=== PATIENT | male | born 1965 | race Caucasian/White ===

== ENCOUNTER 2016-12-06 02:46 | Emergency (ER) | payer BC ==
[~2016-12-06] VITALS: Ht 177.8 cm; Wt 96.2 kg
[2016-12-06 02:48] VITALS: BP 133/85
[2016-12-06] MEDS ORDERED: ASPIRIN 81 MG TAB.CHEW ONE (03:20)
[2016-12-06] MEDS ORDERED: ONDANSETRON HCL/PF 4 MG/2 ML VIAL ONE (03:24)
[2016-12-06] MEDS ORDERED: MORPHINE SULFATE INJ 2 MG/ML DISP.SYRIN ONE (03:24)
[2016-12-06] MEDS ORDERED: ONDANSETRON HCL/PF 4 MG/2 ML VIAL IV ONE (03:30)
[2016-12-06] MEDS ORDERED: ASPIRIN 81 MG TAB.CHEW PO ONE (03:30)
[2016-12-06] MEDS ORDERED: KETOROLAC TROMETHAMINE INJ 60 MG/2 ML VIAL IM ONE (03:30)
[2016-12-06] MEDS ORDERED: MORPHINE SULFATE INJ 2 MG/ML DISP.SYRIN IV ONE (03:30)
[2016-12-06 03:39] LABS: BASOPHILS % (AUTO) 0.3 % (0.0-2.0); DIFF TOTAL % 100 %; EOSINOPHILS # (AUTO) 0.2 /CMM (0.0-0.7); EOSINOPHILS % (AUTO) 2.5 % (0.0-6.0); HEMATOCRIT 44 % (39-51); HEMOGLOBIN 14.9 g/dL (13.5-17.5); LYMPHOCYTES # (AUTO) 2.7 /CMM (0.8-4.8); LYMPHOCYTES % (AUTO) 27.4 % (20.0-44.0); MEAN CORPUSCULAR HEMOGLOBIN 28 PG (26.0-33.0); MEAN CORPUSCULAR HGB CONC 34 g/dl (31.0-36.0); MEAN CORPUSCULAR VOLUME 82 fL (80-96); MONOCYTES # (AUTO) 0.5 /CMM (0.1-1.30); NEUTROPHILS # (AUTO) 6.3 /CMM (1.8-8.9); NEUTROPHILS % (AUTO) 64.8 % (43.0-81.0); PLATELET COUNT (AUTO) 241 /CMM (150-450); RED BLOOD CELL COUNT(AUTO) 5.34 MIL/uL (4.5-6.0); WHITE BLOOD COUNT (AUTO) 9.8 K/uL (4.3-11.0)
[2016-12-06] MEDS ORDERED: HEPARIN SODIUM, PORCINE 5000 UNITS/1 ML VIAL ONE (03:39)
[2016-12-06 03:49] LABS: CALCIUM, SERUM 8.7 mg/dL (8.5-10.1); CREATININE 1.2 mg/dL (0.6-1.3); POTASSIUM 3.6 mmol/L (3.5-5.1)
[2016-12-06 03:59] LABS: INR 0.96 (0.87-1.13); PROTHROMBIN TIME 10.4 SECS (9.5-12.7); TROPONIN I 0.456 ng/mL (0.00-0.056)
[2016-12-06] MEDS ORDERED: HEPARIN INFUSION/D5W 500 ML IV PRN (04:00)
[2016-12-06] MEDS ORDERED: HEPARIN SODIUM, PORCINE 5000 UNITS/1 ML VIAL IV ONE (04:00)
== END 2016-12-06 04:08 | disposition short-term general hospital (02) ==
LOC: ER 02:51
DX: I21.3 ST elevation (STEMI) myocardial infarction of unspecified site (principal); K21.9 Gastro-esophageal reflux disease without esophagitis; Z96.642 Presence of left artificial hip joint
CPT/HCPCS: 36415; 71010; 80048; 84484; 85025; 85730; 93005 ×2; 96374; 96375; 99291; 99292; A4606; J1644; J2270; J2405; Z7610